=== PATIENT | male | born 1990 | race African-American/Black ===

== ENCOUNTER 2021-03-09 16:42 | Inpatient (IN) | payer MEDICAID ==
[~2021-03-09] VITALS: Ht 170.2 cm; Wt 83.0 kg
--- NOTE | ~2021-03-09 | OP ---
PATIENT NAME: NAMRATA RIVAS MEDICAL RECORD: [id number] :88 LOCATION:D.M2 D.2119 ADMISSION DATE:03/09/21 SURGEON: CLAY FLANAGAN MD DATE OF OPERATION: 03/10/2021 PREOPERATIVE DIAGNOSES: 1. End-stage renal disease. 2. Sickle cell anemia. 3. Sickle cell disease. POSTOPERATIVE DIAGNOSES: 1. End-stage renal disease. 2. Sickle cell anemia. 3. Sickle cell disease. PROCEDURE: 1. Right IJ 19 cm HemoSplit catheter placement. 2. Fluoroscopic interpretation. SURGEON: Clay Flanagan MD REPORT OF PROCEDURE: The patient's right neck and chest were prepped and draped in sterile fashion. Using ultrasound guidance, a needle was used to cannulate the right internal jugular vein. A guidewire was then advanced with ease. Fluoroscopy was used to note that the wire was in good position in the venous system. A skin incision was made on the right chest and a 19 cm HemoSplit catheter was tunneled between this and the wire exit site. The multiple dilators were placed over the wire followed by the dilator trocar device. The wire and dilator were removed and the catheter was advanced through the trocar. Once the trocar was removed. The catheter was pulled back until it rested in good position at the right atrial superior vena caval junction. The catheter aspirated nonpulsatile dark blood and flushed easily with heparinized saline. This was sutured into place with 3-0 nylons and the skin incisions were closed with subcutaneous 5-0 Monocryl. COMPLICATIONS: None. CONDITION: Stable. ANESTHESIA: General endotracheal. BLOOD LOSS: 30 mL. TRANSINT:[id number] Voice Confirmation ID: [id number] DOCUMENT ID: [id number] CLAY FLANAGAN MD CC: YOSSI ROMANO MD [id number] DICTATION DATE: 03/10/21 1152 INDUSTRIAL PRODUCTION MANAGER: 03/10/211912 ADM IN [facility] [address] [id number]
[~2021-03-09 16:42] MED LIST: DROXIA200 MG PO; FOLIC ACID1 MG PO
[2021-03-09] MEDS ORDERED: VITAMIN D3 (16:53)
[2021-03-09] MEDS ORDERED: CLARITIN (16:53)
[2021-03-09] MEDS ORDERED: LOSARTAN (16:53)
[2021-03-09 18:26] LABS: BASOPHILS 0.6 % (0-2); EOSINOPHILS 1.4 % (0-7); IMMATURE GRANULOCYTES 0.3 % (0-5); LYMPHOCYTE ABS# 2.93 10x3/uL (1.32-3.57); LYMPHOCYTES 20.8 % (15-50); MCH 32.6 pg (26.0-34.0); MCHC 33.7 g/dL (31.0-37.0); MCV 96.7 fL (80.0-100.0); MEAN PLATELET VOLUME 10.9 fL (7.4-10.4); NEUTROPHILS 71.9 % (40-80); RDW 23.7 % (11.5-14.5); WBC 14.1 10x3/uL (4.8-10.8)
[2021-03-09 18:35] LABS: ANION GAP 22.5 mmol/L (8-16); CALCIUM 7.8 mg/dL (8.5-10.1); CARBON DIOXIDE 13.1 mmol/L (21.0-32.0); CREATININE - SERUM 6.9 mg/dL (0.6-1.3); POTASSIUM - SERUM 5.6 mmol/L (3.5-5.1)
[2021-03-09 18:36] LABS: RBC 1.84 10x6/uL (4.20-6.10)
[2021-03-09 18:37] LABS: HEMATOCRIT 17.8 % (42.0-54.0); PLATELET COUNT 313 10x3/uL (130-400)
[2021-03-09 18:41] LABS: ALBUMIN 3.7 g/dL (3.4-5.0); BILIRUBIN - TOTAL 1.36 mg/dL (0.2-1.3); PROTEIN - SERUM 7.4 g/dL (6.4-8.2)
[2021-03-09 21:30] VITALS: BP 164/84
[2021-03-09 21:45] VITALS: BP 145/96
--- NOTE | 2021-03-09 21:45 | NUR ---
PRBC INFUSING. PATIENT TOLERATING WELL
[2021-03-09 21:59] LABS: APTT 43.9 SECONDS (22.8-39.4)
[2021-03-09 22:00] VITALS: BP 158/87
[2021-03-09] MEDS ORDERED: OXYCONTIN10 MG PO (22:55)
[2021-03-09 23:17] VITALS: BP 145/87; BMI 28.7
--- NOTE | 2021-03-09 23:30 | NUR ---
REPORT RECEIVED. PT A&O, UP IN BED ON PHONE WITH FAMILY. NO S/S OF DISTRESS OBSERVED. RR EVEN AND UNLABORED ON RA. L HAND IV PATENT, SL, SWAB CAPS IN USE. ST [address] ON [address]LE[address] IN [address]ACE. BED LOCKED AND LOWERED, CL IN REACH. ASSESSMENT COMPLETE. WILL CONT POC.
[2021-03-10 01:31] LABS: PROTIME 11.3 SECONDS (11.6-15.0)
[2021-03-10 03:45] VITALS: BP 166/88
--- NOTE | 2021-03-10 06:50 | NUR ---
RECIEVED BEDSIDE REPORT PATIENT RESTING IN BED. NO CURRENT COMPLAINTS OF PAIN AT THIS TIME. NPO LEFT CHEST PORT SALINE LOCKED RESP EVEN AND UNLABORED ON ROOM AIR.
[2021-03-10 06:55] LABS: BASOPHILS 0.9 % (0-2); EOSINOPHILS 1.8 % (0-7); LYMPHOCYTES 13.2 % (15-50); MCH 32.3 pg (26.0-34.0); MCHC 33.6 g/dL (31.0-37.0); MCV 96.2 fL (80.0-100.0); MEAN PLATELET VOLUME 9.3 fL (7.4-10.4); MONOCYTES 5.1 % (2-11); RDW 23.9 % (11.5-14.5); WBC 12.8 10x3/uL (4.8-10.8)
[2021-03-10 07:02] LABS: ANION GAP 19.7 mmol/L (8-16); CALCIUM 7.7 mg/dL (8.5-10.1); CARBON DIOXIDE 14.5 mmol/L (21.0-32.0); CREATININE - SERUM 6.9 mg/dL (0.6-1.3); MAGNESIUM - SERUM 1.6 mg/dL (1.8-2.4); POTASSIUM - SERUM 5.2 mmol/L (3.5-5.1)
[2021-03-10 07:15] LABS: HEMATOCRIT 21.9 % (42.0-54.0); HEMOGLOBIN 7.4 g/dL (13.5-17.5); PLATELET COUNT 445 10x3/uL (130-400); RBC 2.28 10x6/uL (4.20-6.10)
[2021-03-10 07:40] LABS: INR 1.26 (0.85-1.17); PROTIME 14.6 SECONDS (11.6-15.0)
[2021-03-10 08:04] VITALS: BMI 28.6
[2021-03-10 08:06] VITALS: BP 140/79
--- NOTE | 2021-03-10 08:24 | NUR ---
PATIENT RESTING IN BED. STATES HES HUNGRY. JUST RECIEVED NEW ORDERS FOR PREOP MEDICATION. RESP EVEN AND UNLABORED ON ROOM AIR. IV TO LEFT CHEST PATENT. HEART SOUNDS REGULAR RATE AND RYTHYM. ALERT AND ORIENTED, UP AT IRIS. NPO SINCE MIDNIGHT.
[2021-03-10 09:20] VITALS: Ht 170.2 cm; Wt 83.0 kg
[2021-03-10] MEDS ORDERED: PHOSLO667 MG PO (10:37)
[2021-03-10 14:22] LABS: % SATURATION 54 % (15-55); IRON 90 ug/dl (35-150); TOTAL IRON BIND CAPACITY 165 ug/dl (260-445); UNSAT IRON BIND CAPACITY 75 ug/dl (150-375)
[2021-03-10 20:09] VITALS: BP 154/70
--- NOTE | 2021-03-10 23:17 | NUR ---
INITIAL ROUNDS COMPLETED AT 1915 HRS. PT RESTING WITH EYES CLOSED. RESP EVEN AND REULAR. ASSESSMETN COMPLETED AT 5 HRS. VSS. ALERT AND ORIENTED TO PERSON, PLACE AND TIME. JOSÉ. PALPABLE PERIPHERAL PULSES. HEMOSPLIT NOTED TO R CHEST. INPLANED PORT TO L CHEST. O2 2LNC. MORPHINE 4MG SIVP GIVNE AT 2105 HRS. FOR C/O PAIN. SCHEDULED OXYCONTIN GIVEN AT 2245 HRS. PT CURRENTLY TALKING ON HIS CELL PHONE. SR UP X2,CALL LIGHT WITHIN REACH.
[2021-03-10 23:50] VITALS: BP 133/73
--- NOTE | 2021-03-11 00:28 | NUR ---
PT RESTING WITH EYES CLOSED. RESP EVEN AND REGULAR. CALL LIGHT WITHIN REACH.
--- NOTE | 2021-03-11 02:09 | NUR ---
PT RESTING WITH EYES CLOSED. RESP EVEN AND REGULAR. SR UP X1,CALL LIGHT WITHIN REACH.
--- NOTE | 2021-03-11 03:23 | NUR ---
MORPHINE 4NG SIVP GIVEN FOR C/O INCISIONAL PAIN.
--- NOTE | 2021-03-11 04:19 | NUR ---
PT WATCHING TV. NO DISTRESS NOTED. CALL LIGHT WITHIN REACH.
[2021-03-11 04:40] VITALS: BP 147/80
--- NOTE | 2021-03-11 06:23 | NUR ---
PT RESTED WELL DURING SHIFT. STATED IV MORPHINE DID NOT DECREASE HIS PAIN. WILL CONTINUE TO MONITOR.
[2021-03-11 06:54] LABS: ALBUMIN 3.3 g/dL (3.4-5.0); BILIRUBIN - TOTAL 1.6 mg/dL (0.2-1.3); CALCIUM 7.7 mg/dL (8.5-10.1); CREATININE - SERUM 5.4 mg/dL (0.6-1.3); PHOSPHOROUS 5.3 mg/dL (2.5-4.9); PROTEIN - SERUM 7.4 g/dL (6.4-8.2)
[2021-03-11 06:55] LABS: CARBON DIOXIDE 25.1 mmol/L (21.0-32.0); POTASSIUM - SERUM 4.1 mmol/L (3.5-5.1)
[2021-03-11 07:15] LABS: BASOPHILS 0.4 % (0-2); EOSINOPHILS 0.2 % (0-7); HEMATOCRIT 24.3 % (42.0-54.0); HEMOGLOBIN 8.4 g/dL (13.5-17.5); LYMPHOCYTES 9.3 % (15-50); MCH 32.7 pg (26.0-34.0); MCHC 34.5 g/dL (31.0-37.0); MCV 94.6 fL (80.0-100.0); MEAN PLATELET VOLUME 9.4 fL (7.4-10.4); MONOCYTES 6.8 % (2-11); NEUTROPHILS 83.3 % (40-80); PLATELET COUNT 394 10x3/uL (130-400); RBC 2.57 10x6/uL (4.20-6.10); RDW 22.6 % (11.5-14.5); WBC 14.4 10x3/uL (4.8-10.8)
[2021-03-11 08:13] VITALS: BP 140/75
--- NOTE | 2021-03-11 08:17 | NUR ---
AM MEDS GIVEN AT THIS TIME, ALSO GAVE 4MG OF MORPHINE FOR PAIN LEVEL OF 7/10. PT A/O X4, RESP EVEN AND NONLABORED ON 2LNC, RT CHEST HEMOSPLIT WTIH DRESSSING CDI. LT CHEST INFUSAPORT SL. PT DENIES ANY OTHER NEEDS AT THIS TIME. CALL LIGHT IN REACH, WILL CONTINUE PLAN OF CARE.
[2021-03-11 09:11] LABS: HEPATITIS C ANTIBODY <0.1 S/CO RAT (0.0-0.9)
--- NOTE | 2021-03-11 11:00 | NUR ---
PT FIXING TO GET IN THE SHOWER, WANTS TO WAIT UNTIL AFTER HE GETS OUT OF THE SHOWER TO TAKE HIS OXYCOTIN. COVID SWAB DONE AT THIS TIME. TAKEN TO LAB.
[2021-03-11 11:52] VITALS: BP 172/96
[2021-03-11 12:46] LABS: NITRITE NEGATIVE (NEGATIVE)
[2021-03-11 12:47] LABS: BILIRUBIN NEGATIVE (NEGATIVE); KETONE NEGATIVE (NEGATIVE); UROBILINOGEN NORMAL mg/dL (< 2)
[2021-03-11 12:48] LABS: AMORPHOUS SEDIMENT FEW LPF (NONE SEEN); GRANULAR CAST 0-5 LPF (NONE SEEN); SQUAMOUS EPITHELIAL 0-5 HPF (0-4); WHITE CELLS - URINE 0-5 HPF (0-1)
[2021-03-11 15:58] VITALS: BP 165/88
--- NOTE | 2021-03-11 16:44 | NUR ---
PT TO DIALYSIS, VIA BED.
[2021-03-11 20:30] VITALS: BP 138/93
--- NOTE | 2021-03-11 22:33 | NUR ---
PT BACK FORM DIALYSIS AT 1930 HRS. NO DISTRESS NOTED. ASSESSMETN COMPLETED AT 1935 HRS. VSS. ALERT AND ORIENTED TO PERSON, PLACE AND TIME. JOSÉ. R CHEST HEMOSPLIT CLEAN,DRY AND INTACT. L CHEST INFUSAPORT SL. LUNGS CTA. MORPHINE 4MG,ZOFRAN 4MG SIVP GIVEN AT 2015 HRS. PT CURRENTLY WATCHING TV, REQUESTING GRAHAN CRACKER AND PAIN MEDS. CALL LIGHT WITHIN REACH.
[2021-03-12] VITALS (7 sets, daily range): BP systolic 108–135; BP diastolic 69–87
--- NOTE | 2021-03-12 00:16 | NUR ---
PT RESTING WITH EYES CLOSED. RESP EVEN AND REGULAR. CALL LIGHT WITHIN REACH.
--- NOTE | 2021-03-12 02:08 | NUR ---
PT RESTING WITH EYES CLOSED. RESP EVEN AND REGULAR. CALL LIGHT WITHIN REACH.
--- NOTE | 2021-03-12 04:14 | NUR ---
MORPHINE 4MG SIVP GIVEN FOR C/O BACK PAIN. CALL LIGHT WITHIN REACH.
--- NOTE | 2021-03-12 06:19 | NUR ---
SASHA OVERTONOUT NIGHT. PT STATES MORPHINE DOES NOT HELP HIS BACK PAIN. WILL CONTINUE TO MONITOR.
[2021-03-12 08:02] LABS: BASOPHILS 0.8 % (0-2); EOSINOPHILS 1.9 % (0-7); LYMPHOCYTES 21.2 % (15-50); MCH 32.1 pg (26.0-34.0); MCHC 33.4 g/dL (31.0-37.0); MCV 96.1 fL (80.0-100.0); MEAN PLATELET VOLUME 9.3 fL (7.4-10.4); MONOCYTES 5.6 % (2-11); NEUTROPHILS 70.5 % (40-80); PLATELET COUNT 422 10x3/uL (130-400); RDW 22.3 % (11.5-14.5); WBC 16.8 10x3/uL (4.8-10.8)
[2021-03-12 08:12] LABS: ALBUMIN 4.1 g/dL (3.4-5.0); ANION GAP 17.9 mmol/L (8-16); BILIRUBIN - TOTAL 1.86 mg/dL (0.2-1.3); CALCIUM 8.3 mg/dL (8.5-10.1); CARBON DIOXIDE 25.3 mmol/L (21.0-32.0); CREATININE - SERUM 5.6 mg/dL (0.6-1.3); POTASSIUM - SERUM 4.2 mmol/L (3.5-5.1); PROTEIN - SERUM 8.4 g/dL (6.4-8.2)
[2021-03-12 08:14] LABS: HEMATOCRIT 31.6 % (42.0-54.0); HEMOGLOBIN 10.5 g/dL (13.5-17.5); RBC 3.29 10x6/uL (4.20-6.10)
--- NOTE | 2021-03-12 08:16 | NUR ---
AM MEDS GIVEN AT THIS TIME. ALSO GAVE 4MG OF MORPHINE FOR PAIN LEVEL OF 6/10. PT A/O X4, RESP EVEN AND NONLABORED ON RA. LT CHEST INFUSAPORT SL, SWAB CAPS IN USE. RT CHEST HEMOSPLIT WITH DRESSING CDI. ALL NEEDS MET, CALL LIGHT IN REACH, WILL CONTINUE PLAN OF CARE.
--- NOTE | 2021-03-12 12:22 | NUR ---
2MG OF DILAUDID GIVEN FOR PAIN LEVEL OF 6/10, ALSO GAVE FLEXERIL. PT DENIES ANY OTHER NEEDS, CALL LIGHT IN REACH.
--- NOTE | 2021-03-12 19:42 | NUR ---
RECEIVED REPORT, WILL ASSUME CARE OF PT, SLEEPING, NO DISTRESS NOTICED AT THIS TIME, BED IS LOW, SRX2, CALL LIGHT IN REACH, WILL CONTINUE PLAN OF CARE
[2021-03-13 04:24] VITALS: BP 131/74
--- NOTE | 2021-03-13 06:51 | NUR ---
I have reviewed this patient and I concur with the Shift Assessment completed by the Licensed Practical Nurse today this shift.
--- NOTE | 2021-03-13 06:52 | NUR ---
I have reviewed this patient and I concur with the Shift Assessment completed by the Licensed Practical Nurse today this shift.
[2021-03-13 07:09] LABS: BASOPHILS 0.9 % (0-2); HEMATOCRIT 29.4 % (42.0-54.0); HEMOGLOBIN 9.9 g/dL (13.5-17.5); LYMPHOCYTES 18.9 % (15-50); MCHC 33.6 g/dL (31.0-37.0); MCV 95.4 fL (80.0-100.0); MEAN PLATELET VOLUME 9.5 fL (7.4-10.4); MONOCYTES 6.2 % (2-11); PLATELET COUNT 378 10x3/uL (130-400); RBC 3.08 10x6/uL (4.20-6.10); RDW 21.6 % (11.5-14.5); WBC 15.4 10x3/uL (4.8-10.8)
[2021-03-13 07:30] VITALS: BP 106/55
[2021-03-13 07:44] LABS: ALBUMIN 3.4 g/dL (3.4-5.0); ANION GAP 17.2 mmol/L (8-16); BILIRUBIN - TOTAL 1.33 mg/dL (0.2-1.3); CARBON DIOXIDE 23.9 mmol/L (21.0-32.0); POTASSIUM - SERUM 4.1 mmol/L (3.5-5.1); PROTEIN - SERUM 7.8 g/dL (6.4-8.2)
[2021-03-13 07:45] LABS: CREATININE - SERUM 7.7 mg/dL (0.6-1.3); PHOSPHOROUS 9.3 mg/dL (2.5-4.9)
--- NOTE | 2021-03-13 08:17 | NUR ---
AM MEDS GIVEN AT THIS TIME. PT A/O X4, RESP EVEN AND NONLABORED, PT ASKING FOR PAIN MEDICATION, INFORMED HIM THAT HE WILL GET PAIN MEDICATION AT 1045. AND HE CANNOT HAVE HIS DILAUDID UNTIL 2. PT DENIES ANY OTHER NEEDS AT THIS TIME. CALL LIGHT IN REACH, WILL CONTINUE PLAN OF CARE.
[2021-03-13] MEDS ORDERED: OMNICEF300 MG PO (10:28)
[2021-03-13] MEDS ORDERED: COZAAR50 MG PO (10:29)
[2021-03-13 11:30] VITALS: BP 119/75
[2021-03-13 12:46] LABS: BILIRUBIN NEGATIVE (NEGATIVE); KETONE NEGATIVE (NEGATIVE); NITRITE NEGATIVE (NEGATIVE); UROBILINOGEN NORMAL mg/dL (< 2)
[2021-03-13 12:47] LABS: BACTERIA FEW HPF (NONE SEEN); WHITE CELLS - URINE 0-5 HPF (0-1)
--- NOTE | 2021-03-13 13:33 | NUR ---
Nutrition Follow-up: Diet: Renal PO intake: 25-50% x 3 meals yesterday. He ate 100% of breakfast this AM. States that his appetite is good and denies needs from dietary at this time. Last BM: none recorded since admit Wt: 183# (03/10/21)- no new weight Meds noted: MagOx, Phoslo, NS@100 Labs noted: BUN 71(H), Cr 7.7(H), GFR 11(L), Glu 122(H), PO4 9.3(H) Recommendations: -Recommend continue current diet. Will continue to honor food preferences within diet restrictions. -RD will follow-up 03/17/21.
--- NOTE | 2021-03-13 15:24 | NUR ---
2MG OF DILAUDID GIVEN FOR PAIN LEVEL OF 6/10. PT DENIES ANY OTHER NEEDS, CALL LIGHT IN REACH.
[2021-03-13 16:00] VITALS: BP 117/63
--- NOTE | 2021-03-13 19:47 | NUR ---
RECIEVED UP IN BED WITH EYES OPEN AND TV ON ALERT AND ORIENTED X4. UP AD IRIS. DENIES ANY NEEDS. HEMOSPLIT TO RT CHEST AND PORT SL TO LT CHEST.
[2021-03-13 20:16] VITALS: BP 110/61
[2021-03-14 00:20] VITALS: BP 147/86
[2021-03-14 05:21] VITALS: BP 125/75
[2021-03-14 06:27] LABS: BASOPHILS 0.8 % (0-2); EOSINOPHILS 1.4 % (0-7); HEMATOCRIT 26.6 % (42.0-54.0); LYMPHOCYTES 15.2 % (15-50); MCH 32.3 pg (26.0-34.0); MCV 95.1 fL (80.0-100.0); MEAN PLATELET VOLUME 9.1 fL (7.4-10.4); MONOCYTES 6.1 % (2-11); NEUTROPHILS 76.5 % (40-80); PLATELET COUNT 333 10x3/uL (130-400); RDW 20.4 % (11.5-14.5); WBC 15.6 10x3/uL (4.8-10.8)
[2021-03-14 06:45] LABS: ALBUMIN 3.3 g/dL (3.4-5.0); ANION GAP 18.4 mmol/L (8-16); BILIRUBIN - TOTAL 1.24 mg/dL (0.2-1.3); CARBON DIOXIDE 23.1 mmol/L (21.0-32.0); CREATININE - SERUM 9.2 mg/dL (0.6-1.3); POTASSIUM - SERUM 4.5 mmol/L (3.5-5.1); PROTEIN - SERUM 7.5 g/dL (6.4-8.2)
[2021-03-14 08:00] VITALS: BP 124/70
[2021-03-14 11:45] VITALS: BP 121/80
--- NOTE | 2021-03-14 14:46 | NUR ---
Dialysis Coordinator: This Coordinator WAS notified of patient's need for OPHD placement on 03/10/21, however, at that time patient was just being started on FDOD, required labs were still pending, and per renal RETAIL MANAGEMENT TRAINEE, pt still needed blood product and additional care and was not quite ready for discharge yet. This Coordinator explained to renal RETAIL MANAGEMENT TRAINEE at time of call that would be later in the day, possibly even Saturday, 03/14 before further workup could be completed on this referral, especially considering labs and other documentation required for placement were still pending. Continuing to work on placement at this time. Referral pending for [facility]. Patient's Covid test is still pending at this time. Will update as soon as an OPHD chair time is available. CELIA FRANK.
--- NOTE | 2021-03-14 15:26 | NUR ---
TAKEN TO DIALYSIS VIA BED.
--- NOTE | 2021-03-14 18:19 | NUR ---
PATIENT TOLERATED DIALYSIS TX WELL WITH NO PROBLEMS. 2000 MLS REMOVED WITH TX. O2 SAT 100% WITH O2 AT 1.5l/m BNC. DENIES SHORTNESS OF BREATH. AFTER TX COMPLETED REPORT GIVEN TO MANI SWEENEY AND TRANSPORT TRANSFERED PT BACK TO ROOM. PT REQUESTED TO NOT WEAR O2. O2 TANK OFF AND O2 READING AT 99%.
[2021-03-14 20:00] VITALS: BP 107/71
[2021-03-14 21:47] LABS: SARS-CoV-2 ANTIGEN NEGATIVE- SARS-COV-2 (NEGATIVE)
--- NOTE | 2021-03-14 22:31 | NUR ---
DIALYSIS COORDINATOR: The patient has been accepted at the [facility], however, he cannot start in-center until MARCH 17. PRIOR to discharge, please confirm with Dr. Smith patient is cleared for discharged in regards to hd txs. Last HD was , 03/14, next treatment wouldn't be until Saturday, 03/17. If o.k. with renal, then schedule as follows: Sat/Sat/Sat tx 03/17 @ 3:15 check-in for paperwork. Bring 2 forms of ID, insurance cards & medication list. After Saturday, Regular schedule: Arrive: 3:40 On-time:4:00. Please reach out to me with questions. Lanette Selby, [employer], Dialysis Coordinator, .
[2021-03-15] VITALS: BP 124/70
[2021-03-15 04:00] VITALS: BP 109/63
[2021-03-15 05:27] LABS: BASOPHILS 1.2 % (0-2); EOSINOPHILS 1.9 % (0-7); HEMATOCRIT 28.3 % (42.0-54.0); HEMOGLOBIN 9.4 g/dL (13.5-17.5); LYMPHOCYTES 20.5 % (15-50); MCH 31.6 pg (26.0-34.0); MCHC 33.2 g/dL (31.0-37.0); MCV 95.3 fL (80.0-100.0); MEAN PLATELET VOLUME 9.1 fL (7.4-10.4); MONOCYTES 5.9 % (2-11); NEUTROPHILS 70.5 % (40-80); PLATELET COUNT 307 10x3/uL (130-400); RBC 2.97 10x6/uL (4.20-6.10); RDW 21.4 % (11.5-14.5); WBC 14.3 10x3/uL (4.8-10.8)
[2021-03-15 05:44] LABS: ALBUMIN 3.4 g/dL (3.4-5.0); ANION GAP 16.5 mmol/L (8-16); BILIRUBIN - TOTAL 1.39 mg/dL (0.2-1.3); CALCIUM 8.3 mg/dL (8.5-10.1); CARBON DIOXIDE 25.5 mmol/L (21.0-32.0); CREATININE - SERUM 7.1 mg/dL (0.6-1.3); PHOSPHOROUS 7.7 mg/dL (2.5-4.9)
--- NOTE | 2021-03-15 09:33 | MORECARE ---
CASE MANAGEMENT DISCHARGE SUMMARY PATIENT: NAMRATA RIVAS UNIT: [id number] ADM DATE: 03/09/21 AGE: 30 : 89 SEX: M ROOM/BED: D.2135 AUTHOR: ROBINSON,DOC PHYSICIAN: REFERRING PHYSICIAN: MEEK HERNÁNDEZ MD DATE OF SERVICE: 03/15/21 Case Management Discharge Planning Summary DCP REVIEW SUMMARY ANTICIPATED D/C DATE: 03/15/2021 EXPECTED LOS : 6 CASE STATUS: DCP Initiated INITIAL REVIEW: 03/09/2021 INITIAL REVIEWER: Radha Irizarry FINAL DISCHARGE DISPOSITION: : FINAL REVIEWER: FINAL REVIEW DATE: DCP Focus Questions & Answers QUESTION: ANSWER : PATIENT: NAMRATA RIVAS ENCOUNTER: [id number] MEDICAL RECORD#: [id number] ADMISSION DATE: 03/09/2021 DISCHARGE DATE: ATTENDING MD: : AGE: 30 MARITAL STATUS: S DC PLAN ID: [id number] FACILITY: [facility] PRINTED ON: 03/15/21 9:33 CT All edits/amendments must be made on the electronic document DICTATION DATE: 03/15/21932 CARROTING MACHINE OPERATOR: DM 03/15/21932 RPT#: [id number] DC DATE: STATUS: ADM IN [facility] [address] [place] [address] END OF REPORT
[2021-03-15 09:49] VITALS: BP 101/72
--- NOTE | 2021-03-15 09:54 | MORECARE ---
CASE MANAGEMENT DISCHARGE SUMMARY PATIENT: NAMRATA CHAPMAN UNIT: [id number] ADM DATE: 03/09/21 AGE: 30 : 89 SEX: M ROOM/BED: D.2135 AUTHOR: ROBINSON,DOC PHYSICIAN: REFERRING PHYSICIAN: MEEK HERNÁNDEZ MD DATE OF SERVICE: 03/15/21 Case Management Discharge Planning Summary COMMENTS ENTERED DATE: 03/15/21 9:33 CT COMMENT TYPE: Discharge Planning REVIEWER: Radha Irizarry CM met with patient to complete discharge planning assessment and offer availability of needed services. Patient states that he lives independently at home with his mother prior to admission. Pt verified that home environment is safe and has electricity and running water. Patient denies need for transportation and state that they have funds for services and medications if needed. PCP is Dr Christian and patient uses [facility] pharmacy in [place]. CM offered and discussed home health, rehab services, and need for any medical equipment. Patient did not express need for offered services at this time. Patient is scheduled for dialysis at [facility] in [place] Saturday03/15/21 @ 3:15p. Transportation home will be provided by mother Nancy Chapman ( [phone]). Patient voices no additional services or needs at this time. AKP REVIEW SUMMARY ANTICIPATED D/C DATE: 03/15/2021 EXPECTED LOS : 6 CASE STATUS: DCP Initiated INITIAL REVIEW: 03/09/2021 INITIAL REVIEWER: Radha Irizarry FINAL DISCHARGE DISPOSITION: : FINAL REVIEWER: FINAL REVIEW DATE: AKP Focus Questions & Answers QUESTION: ANSWER : PATIENT: NAMRATA CHAPMAN ENCOUNTER: [id number] MEDICAL RECORD#: [id number] ADMISSION DATE: 03/09/2021 DISCHARGE DATE: ATTENDING MD: : AGE: 30 MARITAL STATUS: S DC PLAN ID: [id number] FACILITY: [facility] PRINTED ON: 03/15/21 9:54 CT All edits/amendments must be made on the electronic document DICTATION DATE: 03/15/21953 BALANCE RECESSER: AMPARO 03/15/21953 RPT#: [id number] DC DATE: STATUS: ADM IN [facility] [address] [place] [address] END OF REPORT
--- NOTE | 2021-03-15 11:15 | NUR ---
PT DISCHARGED HOME WITH FAMILY MEMBER. DISCHARGE INSTRUCTIONS PROVIDED VERBALLY AND WRITTEN. PT VERBALIZED UNDERSTANDING. MOTA NEEDLE REMOVED FROM INFUSAPORT BY YASMIN SWEENEY. NO BLEEDING AT SITE NOTED. DRESSING APPLIED.
--- NOTE | 2021-03-20 16:27 | MORECARE ---
CASE MANAGEMENT DISCHARGE SUMMARY PATIENT: NAMRATA CHAPMAN UNIT: [id number] ADM DATE: 03/09/21 AGE: 30 : 89 SEX: M ROOM/BED: D.2135 AUTHOR: ROBINSON,DOC PHYSICIAN: REFERRING PHYSICIAN: MEEK HERNÁNDEZ MD DATE OF SERVICE: 03/20/21 Case Management Discharge Planning Summary COMMENTS ENTERED DATE: 03/15/21 9:33 CT COMMENT TYPE: Discharge Planning REVIEWER: Radha Irizarry CM met with patient to complete discharge planning assessment and offer availability of needed services. Patient states that he lives independently at home with his mother prior to admission. Pt verified that home environment is safe and has electricity and running water. Patient denies need for transportation and state that they have funds for services and medications if needed. PCP is Dr Christian and patient uses [facility] in [place]. CM offered and discussed home health, rehab services, and need for any medical equipment. Patient did not express need for offered services at this time. Patient is scheduled for dialysis at [facility] in [place] Saturday03/15/21 @ 3:15p. Transportation home will be provided by mother Nancy Chapman ). Patient voices no additional services or needs at this time. SCP REVIEW SUMMARY ANTICIPATED D/C DATE: 03/15/2021 EXPECTED LOS : 6 CASE STATUS: DCP Initiated INITIAL REVIEW: 03/09/2021 INITIAL REVIEWER: Radha Irizarry FINAL DISCHARGE DISPOSITION: : FINAL REVIEWER: FINAL REVIEW DATE: SCP Focus Questions & Answers QUESTION: ANSWER : PATIENT: NAMRATA CHAPMAN ENCOUNTER: [id number] MEDICAL RECORD#: [id number] ADMISSION DATE: 03/09/2021 DISCHARGE DATE: 03/15/2021 ATTENDING MD: : AGE: 30 MARITAL STATUS: S DC PLAN ID: [id number] FACILITY: [facility] PRINTED ON: 03/20/21 16:27 CT All edits/amendments must be made on the electronic document DICTATION DATE: 03/20/211626 TRACK SERVICE PERSON: AMPARO 03/20/211626 RPT#: [id number] DC DATE:03/15/21 STATUS: DIS IN [address] [place] [address] END OF REPORT
== END 2021-03-15 11:15 | disposition home or self-care (01) | DRG 673 ==
LOC: D.ER 16:42 → D.M2 21:37
PROVIDERS: Emergency Medicine; Family Medicine; Internal Medicine Nephrology; Surgery; ADMIT Internal Medicine; ATTEND Internal Medicine
PROC: 05HM33Z Insertion of Infusion Device into Right Internal Jugular Vein, Percutaneous Approach (ICD-10-PCS; 2021-03-10)
PROC: B5131ZA Fluoroscopy of Right Jugular Veins using Low Osmolar Contrast, Guidance (ICD-10-PCS; 2021-03-10)
PROC: 5A1D70Z Performance of Urinary Filtration, Intermittent, Less than 6 Hours Per Day (ICD-10-PCS; 2021-03-10)
PROC: 0JH63XZ Insertion of Tunneled Vascular Access Device into Chest Subcutaneous Tissue and Fascia, Percutaneous Approach (ICD-10-PCS; principal; 2021-03-10 12:15)
DX: I12.0 Hypertensive chronic kidney disease with stage 5 chronic kidney disease or end stage renal disease (principal); N18.6 End stage renal disease; Z99.2 Dependence on renal dialysis; Z20.822 Contact with and (suspected) exposure to COVID-19; D63.1 Anemia in chronic kidney disease; D57.1 Sickle-cell disease without crisis; E83.39 Other disorders of phosphorus metabolism